=== PATIENT | female | born 1955 | race Caucasian/White ===

== ENCOUNTER 2020-12-31 07:38 | Outpatient (CLI) | payer BC | END 2020-12-31 07:39 | disposition home or self-care (01) | LOC: CSHCP 07:38 | PROVIDERS: ATTEND Internal Medicine Cardiovascular Disease | DX: R06.02 Shortness of breath (principal); R94.2 Abnormal results of pulmonary function studies | CPT/HCPCS: 94060; 94618; 94729; 94760 ==